=== PATIENT | female | born 1995 | race Caucasian/White ===

== ENCOUNTER 2019-03-28 10:28 | Emergency (ER) | payer OTHER, SELFPAY ==
[~2019-03-28] VITALS: Ht 167.6 cm; Wt 55.4 kg
[~2019-03-28 10:28] MED LIST: IBUP600T OR; PRENTAB8 PO; VALT500T OR; VICO5TAB OR; ZOVI200C OR
[2019-03-28] MEDS ORDERED: KETOROLAC 30 MG/ML VIAL (J1885) IV ONE (11:00)
[2019-03-28] MEDS ORDERED: ONDANSETRON 4MG/2ML VIAL (J2405) IV ONE (11:00)
[2019-03-28] MEDS ORDERED: NS 1,000 ML IV ONE (11:00)
[2019-03-28 11:23] LABS: BASO % 0.2 % (0.0-1.0); EOS # 0.1 10^3/uL (0.0-0.50); EOS % 0.5 % (0.0-3.0); HEMATOCRIT 37.2 % (36.0-47.0); HEMOGLOBIN 12.9 g/dl (12.0-15.5); LYMPH # 1.5 10^3/uL (1.5-6.5); LYMPH % 15.3 % (24.0-44.0); MEAN CORPUSCULAR HEMOGLOBIN 32.2 pg (27.0-33.0); MEAN CORPUSCULAR HGB CONC 34.7 g/dl (32.0-36.5); MEAN CORPUSCULAR VOLUME 92.8 fl (80.0-96.0); MONO # 0.7 10^3/uL (0.0-0.8); MONO % 7.2 % (0.0-5.0); NEUTROPHILS # 7.6 10^3/uL (1.8-7.7); NEUTROPHILS % 76.4 % (36.0-66.0); PLATELET COUNT, AUTOMATED 270 10^3/uL (150-450); RED BLOOD COUNT 4.01 10^6/uL (4.00-5.40)
[2019-03-28 11:45] LABS: ALBUMIN 4.2 GM/DL (3.2-5.2); ALT/SGPT 20 U/L (12-78); BILIRUBIN,DIRECT 0.3 MG/DL (0.0-0.2); BLOOD UREA NITROGEN 18 MG/DL (7-18); CALCIUM LEVEL 8.7 MG/DL (8.5-10.1); CARBON DIOXIDE LEVEL 23 MEQ/L (21-32); CHLORIDE LEVEL 110 MEQ/L (98-107); CREATININE FOR GFR 0.84 MG/DL (0.55-1.30); GLOMERULAR FILTRATION RATE > 60.0 (>60); GLUCOSE, FASTING 96 MG/DL (70-100); LIPASE 66 U/L (73-393); POTASSIUM SERUM 3.7 MEQ/L (3.5-5.1); SODIUM LEVEL 145 MEQ/L (136-145)
--- NOTE | 2019-03-28 12:31 | REP ---
NON-OB PELVIC ULTRASOUND: HISTORY: Pelvic pain. The uterus measures 5.6 cm in transverse x 3.7 cm in AP x 7.7 cm in cephalocaudal dimensions. The endometrium measures 2.3 mm. An IUD is present in the endometrial cavity. The right ovary measures 4.2 x 3.5 x 4.8 cm. An echogenic mass is present in the right ovary. This measures 3.4 x 3 x 4.4 cm. The left ovary measures 3.6 x 2.2 x 3.1 cm. A hemorrhagic follicle is present in the left ovary. The follicle measures 1.9 x 1.8 x 1.8 cm. There is no torsion or free fluid. IMPRESSION: 1. An IUD is present in the endometrial cavity. 2. There is a 4.4 cm echogenic mass in the right ovary. This may represent a dermoid. 3. 1.9 cm left ovarian hemorrhagic follicle. Electronically Signed by Rohit Georges MD 03/28/2019 12:54 P
[2019-03-28] MEDS ORDERED: ZOFR4TAB16 PO (13:14)
[2019-03-28 13:20] VITALS: BP 109/58
--- NOTE | 2019-03-30 12:37 | ED PDOC ---
Post-Departure Follow-Up pelvic us faxed to dr garcia for fu Rubia Ruiz MD Mar 30, 2019 12:37
== END 2019-03-28 13:25 | disposition home or self-care (01) ==
LOC: M ED 10:28
DX: N83.02 Follicular cyst of left ovary (principal); D27.0 Benign neoplasm of right ovary; Z97.5 Presence of (intrauterine) contraceptive device
CPT/HCPCS: 76376; 76830; 76856; 80048; 80076; 81001; 83690; 84702; 85025; 93976; 96361; 96374; 96375; 99284; J1885; J2405

== ENCOUNTER 2019-05-14 06:05 | Day surgery (SDC) | payer OTHER ==
[~2019-05-14] VITALS: Ht 167.6 cm; Wt 57.3 kg
[~2019-05-14 06:05] MED LIST changes: +LEXA1TAB PO; +LIDOCAINE 1% MDV 20ML VIAL SQ PRN; +VITA200010 PO; +ZOFR4TAB16 PO
[2019-05-14 06:31] LABS: HEMATOCRIT 37.2 % (36.0-47.0); HEMOGLOBIN 12.4 g/dl (12.0-15.5); MEAN CORPUSCULAR HEMOGLOBIN 30.9 pg (27.0-33.0); MEAN CORPUSCULAR HGB CONC 33.3 g/dl (32.0-36.5); MEAN CORPUSCULAR VOLUME 92.8 fl (80.0-96.0); PLATELET COUNT, AUTOMATED 245 10^3/uL (150-450); RED BLOOD COUNT 4.01 10^6/uL (4.00-5.40); WHITE BLOOD COUNT 8.4 10^3/uL (4.0-10.0)
[2019-05-14] MEDS ORDERED: PROPOFOL 200 MG/20 ML VIAL As Ordered ONE (06:47)
[2019-05-14] MEDS ORDERED: ROCURONIUM BROMIDE 50 MG/5 ML VIAL As Ordered ONE (06:47)
[2019-05-14] MEDS ORDERED: dexameTHASONE 4 MG/ML 1ML VIAL (J1100) As Ordered ONE (06:48)
[2019-05-14] MEDS ORDERED: ONDANSETRON 4MG/2ML VIAL (J2405) As Ordered ONE (06:48)
[2019-05-14] MEDS ORDERED: ACETAMINOPHEN 1000MG 100ML IV BTL (OFIRMEV) (J0131 PER 10MG) As Ordered ONE (06:48)
[2019-05-14] MEDS ORDERED: MIDAZOLAM INJ 2 MG/2 ML VIAL (J2250) As Ordered ONE (06:48)
[2019-05-14] MEDS ORDERED: fentaNYL 250 MCG/5 ML INJECTION (J3010) As Ordered ONE (06:49)
[2019-05-14] MEDS ORDERED: LIDOCAINE 2% INJ 100 MG/5 ML SDV (FOR ANES.) As Ordered ONE (06:52)
[2019-05-14] MEDS ORDERED: LR 1,000 ML IV ONE (07:00)
[2019-05-14] MEDS ORDERED: BUPIVACAINE HCL 0.25% 30 ML VIAL As Ordered ONE (07:09)
[2019-05-14 07:15] LABS: URINE PREG TEST NEGATIVE (NEGATIVE)
[2019-05-14] MEDS ORDERED: OXYC1TAB23 PO (07:24)
[2019-05-14] MEDS ORDERED: IBUP-1022 PO (07:25)
[2019-05-14] MEDS ORDERED: GLYCOPYRROLATE INJ 0.2 MG/ML 2 ML VIAL As Ordered ONE ×2 (08:02→08:21)
[2019-05-14] MEDS ORDERED: NEOSTIGMINE 10 MG/10 ML VIAL (J2710) As Ordered ONE (08:02)
[2019-05-14] MEDS ORDERED: METOCLOPRAMIDE INJ 10MG/2ML VIAL (J2765) As Ordered ONE (08:03)
[2019-05-14] MEDS ORDERED: KETOROLAC 60 MG/2 ML VIAL (J1885) As Ordered ONE (08:03)
[2019-05-14] MEDS ORDERED: ePHEDrine SULFATE 25 MG/5 ML(5MG/ML) SYRINGE As Ordered ONE (08:21)
[2019-05-14] MEDS ORDERED: PERCOCET 5MG/325MG TAB As Ordered ONE (09:11)
[2019-05-14] MEDS: PERCOCET 5MG/325MG TAB PO PRN ×2 (09:12→09:42)
[2019-05-14] MEDS ORDERED: LR 1,000 ML IV SCH (09:45)
[2019-05-14] MEDS ORDERED: PERCOCET 5MG/325MG TAB PO PRN (09:45)
[2019-05-14] MEDS ORDERED: fentaNYL 100 MCG/2 ML INJECTION (J3010) IV PRN (09:45)
[2019-05-14] MEDS ORDERED: METOCLOPRAMIDE INJ 10MG/2ML VIAL (J2765) IV PRN (09:45)
[2019-05-14] MEDS ORDERED: MEPERIDINE INJ 25 MG/ML VIAL (J2175) IV PRN (09:45)
[2019-05-14] MEDS ORDERED: ONDANSETRON 4MG/2ML VIAL (J2405) IV PRN (09:45)
[2019-05-14 10:45] VITALS: BP 104/51
--- NOTE | 2019-05-15 14:50 | RO ---
DATE OF PROCEDURE: 05/14/2019 PREPROCEDURE DIAGNOSIS: Right ovarian dermoid cyst. POSTPROCEDURE DIAGNOSIS: Right ovarian dermoid cyst. PROCEDURE: Laparoscopic right ovarian cystectomy. SURGEON: Rohit Arteaga MD SCREEN MAKER: Hermann Rutherford DO ANESTHESIA: General endotracheal. ESTIMATED BLOOD LOSS: 50 mL. URINE OUTPUT: 20 mL. FINDINGS: 4-5 cm dermoid cyst involving the right ovary. There is a normal appearing right fallopian tube, normal appearing left ovary and fallopian tube, normal uterus. Omental adhesions to the anterior abdominal wall in the midline. There was mild endometriosis involving the pelvis on the right lateral to the fallopian tube and minimal endometriosis in the posterior cul-de-sac. DESCRIPTION OF PROCEDURE: The patient was taken to the operating room where general endotracheal anesthesia was induced. She was prepped and draped in a sterile fashion in the dorsal lithotomy position. The bladder was emptied with a catheter. A [employer] tenaculum was used as a manipulator. A periumbilical incision was made with a scalpel, and the Veress needle was placed through this incision while tenting up on the skin of the abdomen. Intraabdominal location of the Veress needle was assessed with the use of a saline-filled syringe. Pneumoperitoneum was created. The Veress needle was removed. 11 mm trocar using Visiport was inserted through the incision. Three 5 mm suprapubic ports were placed under direct visualization. The right ovary was elevated out of the ovarian fossa and stabilized. Elliptical incision was created over the area of the dermoid cyst with monopolar Endo Murali. The cyst was dissected off the ovary with a combination of blunt and sharp dissection. The cyst was removed, removed in its entirety. The base of the ovarian stroma was coagulated with the Harmonic scalpel. The ovarian cyst, which was a classic dermoid containing fat and hair was placed in an Endo Catch bag and removed through the umbilical port. The pelvis was copiously irrigated. Pneumoperitoneum was released. All instruments were removed. The skin was closed with #4-0 Monocryl subcuticular sutures. Sponge, instrument, and needle counts were correct.
== END 2019-05-14 10:54 | disposition home or self-care (01) ==
LOC: M SDC 06:05
PROVIDERS: ATTEND Specialist
DX: D27.0 Benign neoplasm of right ovary (principal); N83.11 Corpus luteum cyst of right ovary; F41.9 Anxiety disorder, unspecified; G43.909 Migraine, unspecified, not intractable, without status migrainosus; F32.9 Major depressive disorder, single episode, unspecified; Z79.899 Other long term (current) drug therapy
CPT/HCPCS: 36415; 58662; 84703; 85027; 88305; J0131; J1100; J1885; J2250; J2405; J2710; J2765; J3010

== ENCOUNTER 2020-04-26 14:40 | Emergency (ER) | payer OTHER ==
[~2020-04-26] VITALS: Ht 167.6 cm; Wt 61.8 kg
[~2020-04-26 14:40] MED LIST changes: +IBUP-1022 PO; -LIDOCAINE 1% MDV 20ML VIAL SQ PRN; +OXYC1TAB23 PO
[2020-04-26] MEDS ORDERED: CEPH500C (15:25)
[2020-04-26 15:26] LABS: BASO % 0.5 % (0.0-1.0); EOS # 0.2 10^3/uL (0.0-0.5); HEMATOCRIT 35.9 % (36.0-47.0); HEMOGLOBIN 12.1 g/dl (12.0-15.5); LYMPH # 2.2 10^3/uL (1.5-5.0); MEAN CORPUSCULAR HEMOGLOBIN 30.9 pg (27.0-33.0); MEAN CORPUSCULAR HGB CONC 33.7 g/dl (32.0-36.5); MEAN CORPUSCULAR VOLUME 91.8 fl (80.0-96.0); MONO # 0.5 10^3/uL (0.0-0.8); MONO % 8.4 % (0.0-5.0); NEUTROPHILS # 2.9 10^3/uL (1.5-8.5); NEUTROPHILS % 49.9 % (36.0-66.0); PLATELET COUNT, AUTOMATED 289 10^3/uL (150-450); RED BLOOD COUNT 3.91 10^6/uL (4.00-5.40); WHITE BLOOD COUNT 5.7 10^3/uL (4.0-10.0)
[2020-04-26 15:54] LABS: ALT/SGPT 15 U/L (12-78); BILIRUBIN,DIRECT 0.1 MG/DL (0.0-0.2); BILIRUBIN,TOTAL 0.4 MG/DL (0.2-1.0); BLOOD UREA NITROGEN 12 MG/DL (7-18); CALCIUM LEVEL 8.7 MG/DL (8.5-10.1); CARBON DIOXIDE LEVEL 25 MEQ/L (21-32); CHLORIDE LEVEL 112 MEQ/L (98-107); CREATININE FOR GFR 0.74 MG/DL (0.55-1.30); GLOMERULAR FILTRATION RATE > 60.0 (>60); GLUCOSE, FASTING 94 MG/DL (70-100); LIPASE 75 U/L (73-393); SODIUM LEVEL 141 MEQ/L (136-145); TOTAL PROTEIN 7.8 GM/DL (6.4-8.2)
[2020-04-26] MEDS ORDERED: ZOFR4TAB16 PO (17:19)
[2020-04-26 17:26] VITALS: BP 116/55
[2020-04-26] MEDS ORDERED: ACETAMINOPHEN 500 MG TAB PO ONE (17:30)
--- NOTE | 2020-04-27 05:25 | REP ---
RIGHT UPPER QUADRANT ULTRASOUND: Real-time sonographic evaluation of right upper quadrant performed. The gallbladder demonstrates no evidence of intraluminal sludge or calculi, wall thickening, or pericholecystic fluid. There is no intrahepatic or extrahepatic biliary dilatation, common bile duct measuring 6 mm in diameter. Liver and pancreas demonstrate no gross mass. Right kidney demonstrate no hydronephrosis with normal size, 11.2 cm in length. There is no ascites. IMPRESSION: Negative right upper quadrant ultrasound. Electronically Signed by Jam Fraser MD 04/30/2020 10:03 P
== END 2020-04-26 17:31 | disposition home or self-care (01) ==
LOC: M ED 14:40
DX: R10.11 Right upper quadrant pain (principal); R11.2 Nausea with vomiting, unspecified; R19.7 Diarrhea, unspecified; A60.00 Herpesviral infection of urogenital system, unspecified; F17.200 Nicotine dependence, unspecified, uncomplicated; N83.209 Unspecified ovarian cyst, unspecified side; Z79.899 Other long term (current) drug therapy

== ENCOUNTER → 2020-10-06 | Outpatient (CLI) | payer OTHER ==
[~2020-10-06] MED LIST changes: +CEPH500C
== END ==
LOC: M LABSMTC 13:41
PROVIDERS: ATTEND Family Medicine
DX: Z20.828 Contact with and (suspected) exposure to other viral communicable diseases (principal)

== ENCOUNTER 2020-12-25 19:58 | Emergency (ER) | payer OTHER ==
[~2020-12-25] VITALS: Ht 167.6 cm; Wt 67.1 kg
[2020-12-25] MEDS ORDERED: NS 1,000 ML IV ONE (20:35)
[2020-12-25] MEDS ORDERED: ONDANSETRON 4MG/2ML VIAL IV ONE (20:40)
[2020-12-25] MEDS ORDERED: KETOROLAC 30 MG/ML 1ML VIAL IV ONE (20:40)
[2020-12-25 20:59] LABS: BASO % 0.4 % (0.0-1.0); EOS # 0.2 10^3/uL (0.0-0.5); HEMATOCRIT 36.7 % (36.0-47.0); HEMOGLOBIN 11.8 g/dl (12.0-15.5); LYMPH # 2.5 10^3/uL (1.5-5.0); LYMPH % 32.1 % (24.0-44.0); MEAN CORPUSCULAR HEMOGLOBIN 29.8 pg (27.0-33.0); MEAN CORPUSCULAR HGB CONC 32.2 g/dl (32.0-36.5); MEAN CORPUSCULAR VOLUME 92.7 fl (80.0-96.0); MONO % 13.2 % (2.0-8.0); PLATELET COUNT, AUTOMATED 348 10^3/uL (150-450); RED BLOOD COUNT 3.96 10^6/uL (4.00-5.40); WHITE BLOOD COUNT 7.9 10^3/uL (4.0-10.0)
[2020-12-25 21:08] LABS: ALT/SGPT 24 U/L (12-78); BILIRUBIN,DIRECT < 0.1 MG/DL (0.0-0.2); BILIRUBIN,TOTAL 0.3 MG/DL (0.2-1.0); LIPASE 86 U/L (73-393); TOTAL PROTEIN 7.2 GM/DL (6.4-8.2)
[2020-12-26 00:11] LABS: CHLAMYDIA DNA AMPLIFICATION NEGATIVE (NEGATIVE); GC DNA AMPLIFICATION NEGATIVE (NEGATIVE)
[2020-12-26 00:12] VITALS: BP 110/58
--- NOTE | 2020-12-26 00:24 | REPVR ---
PROCEDURE INFORMATION: Exam: US Pelvis Complete, Transabdominal and US Pelvis, Transvaginal and US Duplex Artery and Vein, Ovaries, Complete Exam date and time: 12/25/2020 11:40 PM Age: 25 years old Clinical indication: Pelvic pain; Prior surgery; Surgery date: 6+ months; Surgery type: Dermoid removed from right ovary; Additional info: Abdominal pain TECHNIQUE: Imaging protocol: Real-time transabdominal and transvaginal pelvic ultrasound (complete) with image documentation. Transvaginal imaging was used for better evaluation of the endometrium, adnexa, and/or cervix. Real-time duplex ultrasound scan of the arterial and venous flow of the ovaries with B-mode, color Doppler flow and spectral waveform analysis. COMPARISON: US PELVIC NON-OB COMPLETE 03/28/2019 11:35 AM FINDINGS: Uterus/cervix: The anteverted uterus is normal in appearance. No myometrial mass is noted. The endometrial stripe is normal in appearance. There is an intrauterine device in the endometrial canal. The cervix is unremarkable. Right adnexa: The right ovary is normal in appearance. No right ovarian cyst or right adnexal mass is noted. The 4.4 cm echogenic mass in the right ovary seen in the prior pelvic ultrasound on 03/28/2019 is no longer present. The arterial and venous color Doppler flow and spectral waveforms within the right ovary are within normal limits, without evidence for right ovarian torsion. Left adnexa: There is a 1.9 cm x 1.9 cm x 2 cm involuting follicular cyst in the left ovary. The arterial and venous color Doppler flow and spectral waveforms within the left ovary are within normal limits, without evidence for left ovarian torsion. Intraperitoneal space: No free fluid is seen in the pelvis from the images obtained. Urinary bladder: Unremarkable. Uterus size: 8 cm x 3.6 cm x 5.4 cm Endometrial stripe thickness: 6 mm Right ovary size: 2.1 cm x 1.5 cm x 2.1 cm Left ovary size: 3.8 cm x 3 cm x 2.5 cm IMPRESSION: 1. No acute sonographic findings in the pelvis or evidence for ovarian torsion. 2. 1.9 cm x 1.9 cm x 2 cm involuting follicular cyst in the left ovary, for which follow-up is not necessary. 3. Intrauterine device in the endometrial canal. Electronically signed by: Sd Mayes On 12/26/2020 00:25:24 AM
[2020-12-26] MEDS ORDERED: SIMETHICONE 80MG CHEW TAB PO STA (01:07)
[2020-12-26] MEDS ORDERED: ONDANSETRON 4 MG ORAL DISINTEGRATING TAB PO ONE (01:10)
[2020-12-26] MEDS ORDERED: SIME180C PO (01:10)
[2020-12-26] MEDS ORDERED: ONDA4TAB6 PO (01:10)
[2020-12-26] MEDS ORDERED: DICY10CA13 PO (01:10)
[2020-12-26] MEDS ORDERED: DICYCLOMINE 10 MG CAP PO ONE (01:10)
== END 2020-12-26 01:35 | disposition home or self-care (01) ==
LOC: M ED 19:58
DX: R10.9 Unspecified abdominal pain (principal); R11.2 Nausea with vomiting, unspecified; R19.7 Diarrhea, unspecified; Z20.822 Contact with and (suspected) exposure to COVID-19; Z87.42 Personal history of other diseases of the female genital tract
CPT/HCPCS: 76830; 76856; 80047; 80076; 81001; 83690; 84702; 85025; 87210; 87661; 93976; 96361; 96374; 96375; 99284; J1885; J2405; Q0162; U0003

== ENCOUNTER → 2022-05-13 | Outpatient (CLI) | payer OTHER ==
[~2022-05-13] MED LIST changes: +DICY10CA13 PO; +ONDA4TAB6 PO; +SIME180C25 PO
[2022-05-13 13:55] LABS: BASO % 0.3 % (0.0-1.0); EOS # 0.1 10^3/uL (0.0-0.5); EOS % 1.6 % (0.0-3.0); HEMATOCRIT 33.3 % (36.0-47.0); HEMOGLOBIN 11.3 g/dl (12.0-15.5); LYMPH # 1.8 10^3/uL (1.5-5.0); LYMPH % 20.5 % (24.0-44.0); MEAN CORPUSCULAR HEMOGLOBIN 31.7 pg (27.0-33.0); MEAN CORPUSCULAR HGB CONC 33.9 g/dl (32.0-36.5); MEAN CORPUSCULAR VOLUME 93.3 fl (80.0-96.0); MONO # 0.8 10^3/uL (0.0-0.8); MONO % 8.7 % (2.0-8.0); NEUTROPHILS # 5.9 10^3/uL (1.5-8.5); NEUTROPHILS % 68.1 % (36.0-66.0); PLATELET COUNT, AUTOMATED 306 10^3/uL (150-450); RED BLOOD COUNT 3.57 10^6/uL (4.00-5.40); WHITE BLOOD COUNT 8.7 10^3/uL (4.0-10.0)
[2022-05-13 15:20] LABS: HEPATITIS C VIRUS ABY INDEX < 0.0 INDEX (<0.8); HIV 1&2 SCREEN CENTAUR NEGATIVE (NEGATIVE)
== END ==
LOC: M PLALAB 09:08
PROVIDERS: ATTEND Obstetrics & Gynecology
DX: Z34.90 Encounter for supervision of normal pregnancy, unspecified, unspecified trimester (principal); Z3A.00 Weeks of gestation of pregnancy not specified

== ENCOUNTER → 2022-05-22 | Outpatient (CLI) | payer OTHER | LOC: M WHC 09:59 | PROVIDERS: ATTEND Obstetrics & Gynecology | DX: Z34.82 Encounter for supervision of other normal pregnancy, second trimester (principal) ==

== ENCOUNTER → 2022-07-03 | Outpatient (CLI) | payer OTHER | LOC: M WHC 09:33 | PROVIDERS: ATTEND Advanced Practice Midwife | DX: Z36.2 Encounter for other antenatal screening follow-up (principal); Z3A.25 25 weeks gestation of pregnancy ==

== ENCOUNTER → 2022-07-12 | Outpatient (CLI) | payer OTHER ==
[2022-07-12 15:41] LABS: HEMATOCRIT 29.6 % (36.0-47.0); HEMOGLOBIN 9.9 g/dl (12.0-15.5); MEAN CORPUSCULAR HEMOGLOBIN 32.4 pg (27.0-33.0); MEAN CORPUSCULAR HGB CONC 33.4 g/dl (32.0-36.5); MEAN CORPUSCULAR VOLUME 96.7 fl (80.0-96.0); PLATELET COUNT, AUTOMATED 325 10^3/uL (150-450); RED BLOOD COUNT 3.06 10^6/uL (4.00-5.40); WHITE BLOOD COUNT 12.9 10^3/uL (4.0-10.0)
[2022-07-14 12:18] LABS: GC DNA AMPLIFICATION NEGATIVE (NEGATIVE)
== END ==
LOC: M PLALAB 12:08
PROVIDERS: ATTEND Advanced Practice Midwife
DX: Z34.92 Encounter for supervision of normal pregnancy, unspecified, second trimester (principal); Z3A.00 Weeks of gestation of pregnancy not specified

== ENCOUNTER → 2022-09-10 | Outpatient (CLI) | payer OTHER | LOC: M WHC 14:19 | PROVIDERS: ATTEND Obstetrics & Gynecology | DX: O09.893 Supervision of other high risk pregnancies, third trimester (principal); Z3A.37 37 weeks gestation of pregnancy ==

== ENCOUNTER → 2022-09-19 | Outpatient (REF) | payer OTHER | LOC: M PLALAB 12:09 | PROVIDERS: ATTEND Advanced Practice Midwife | DX: O34.211 Maternal care for low transverse scar from previous cesarean delivery (principal); Z3A.00 Weeks of gestation of pregnancy not specified ==

== ENCOUNTER 2022-10-01 01:04 | Outpatient (CLI) | payer OTHER ==
[~2022-10-01] VITALS: Ht 167.6 cm; Wt 76.8 kg
[~2022-10-01 01:04] MED LIST changes: +FERR325T82 PO; +VALA500T5 PO
[2022-10-01 01:21] VITALS: BP 128/75
[2022-10-01] MEDS ORDERED: HOME MED LIST COMPLETE! XX SCH (02:55)
[2022-10-01 02:56] VITALS: BP 122/72
[2022-10-01 03:15] LABS: APPEARANCE, URINE MANUAL CLEAR (CLEAR); COLOR, URINE MANUAL YELLOW (YELLOW)
[2022-10-01 03:16] LABS: BILIRUBIN, URINE MANUAL NEGATIVE (NEGATIVE); BLOOD URINE MANUAL NEGATIVE (NEGATIVE); GLUCOSE, URINE (UA) MANUAL NEGATIVE (NEGATIVE); KETONE, URINE MANUAL NEGATIVE (NEGATIVE); LEUKOCYTE ESTERASE, URINE MAN NEGATIVE (NEGATIVE); NITRITE, URINE MANUAL NEGATIVE (NEGATIVE); PROTEIN, URINE MANUAL NEGATIVE (NEGATIVE); SPECIFIC GRAVITY,URINE MANUAL 1.015 (1.002-1.035); UROBILINOGEN, URINE MANUAL 4 MG mg/dl (NORMAL)
[2022-10-01 04:22] VITALS: BP 120/71
== END 2022-10-01 04:20 | disposition home or self-care (01) ==
LOC: M LDO 01:04
PROVIDERS: ATTEND Advanced Practice Midwife
DX: O26.893 Other specified pregnancy related conditions, third trimester (principal); R25.2 Cramp and spasm; N89.8 Other specified noninflammatory disorders of vagina; O34.219 Maternal care for unspecified type scar from previous cesarean delivery; Z87.42 Personal history of other diseases of the female genital tract; Z3A.38 38 weeks gestation of pregnancy

== ENCOUNTER → 2022-10-07 | Outpatient (CLI) | payer OTHER | LOC: M LABSMTC 09:26 | PROVIDERS: ATTEND Anesthesiology | DX: Z01.812 Encounter for preprocedural laboratory examination (principal); Z11.52 Encounter for screening for COVID-19 ==

== ENCOUNTER 2022-10-09 05:26 | Inpatient (IN) | payer OTHER ==
[~2022-10-09] VITALS: Ht 167.6 cm; Wt 77.2 kg
[2022-10-09] VITALS (9 sets, daily range): BP systolic 102–128; BP diastolic 64–73
[2022-10-09] MEDS ORDERED: LR 1,000 ML IV ONE (05:45)
[2022-10-09] MEDS ORDERED: BICITRA 30ML SOLN UDC PO ONE (05:45)
[2022-10-09] MEDS ORDERED: ceFAZolin SOD 2 GM in IV 1 EA IV ONE (05:45)
[2022-10-09 06:23] LABS: HEMATOCRIT 32.5 % (36.0-47.0); HEMOGLOBIN 10.5 g/dl (12.0-15.5); MEAN CORPUSCULAR HEMOGLOBIN 28.8 pg (27.0-33.0); MEAN CORPUSCULAR HGB CONC 32.3 g/dl (32.0-36.5); MEAN CORPUSCULAR VOLUME 89.3 fl (80.0-96.0); PLATELET COUNT, AUTOMATED 392 10^3/uL (150-450); RED BLOOD COUNT 3.64 10^6/uL (4.00-5.40); WHITE BLOOD COUNT 9.6 10^3/uL (4.0-10.0)
[2022-10-09] MEDS ORDERED: LR 1,000 ML IV SCH ×2 (06:45→08:55)
[2022-10-09] MEDS ORDERED: OXYTOCIN 30UNITS IN 0.9% NaCl 500ML IV BAG As Ordered ONE ×2 (07:13→09:14)
[2022-10-09] MEDS ORDERED: MORPHINE PRES-FREE INJ 10 MG/10 ML VIAL As Ordered ONE (07:13)
[2022-10-09] MEDS ORDERED: ONDANSETRON 4MG 2ML VIAL As Ordered ONE (07:40)
[2022-10-09] MEDS ORDERED: PHENYLephrine 500MCG 5ML (100MCG/ML) SYRINGE As Ordered ONE (08:16)
[2022-10-09] MEDS ORDERED: ePHEDrine SULFATE 25 MG/5 ML(5MG/ML) SYRINGE As Ordered ONE (08:16)
[2022-10-09] MEDS ORDERED: KETOROLAC 60MG 2ML VIAL As Ordered ONE (08:30)
[2022-10-09] MEDS ORDERED: ACETAMINOPHEN 1000MG 100ML IV BAG As Ordered ONE (08:30)
[2022-10-09] MEDS ORDERED: **NOTE PATIENT COMMENT** MISC XX SCH (08:55)
[2022-10-09] MEDS ORDERED: ONDANSETRON 4MG 2ML VIAL IV PRN ×2 (08:55→09:10)
[2022-10-09] MEDS ORDERED: HYDROMORPHONE HCL 0.5 MG/ 0.5 ML SYRINGE (J1170 PER 1) IV PRN (08:55)
[2022-10-09] MEDS ORDERED: NALOXONE INJ 0.4MG/1ML VIAL IV PRN ×2 (08:55)
[2022-10-09] MEDS ORDERED: METOCLOPRAMIDE INJ 10MG/2ML VIAL IV PRN (08:55)
[2022-10-09] MEDS ORDERED: diphenhydrAMINE 50MG/ML VIAL IV PRN (08:55)
[2022-10-09] MEDS ORDERED: oxyCODONE 5MG TAB PO PRN (08:55)
[2022-10-09] MEDS ORDERED: MEPERIDINE INJ 25 MG/ML VIAL IV PRN (08:55)
[2022-10-09] MEDS ORDERED: fentaNYL 100 MCG/2 ML INJECTION IV PRN (08:55)
[2022-10-09] MEDS ORDERED: PERCOCET 5MG/325MG TAB PO PRN ×2 (09:10)
[2022-10-09] MEDS ORDERED: SIMETHICONE 80MG CHEW TAB PO PRN (09:10)
[2022-10-09] MEDS ORDERED: OXYTOCIN DRIP 30 UNITS in IV 1 EA IV SCH (09:10)
[2022-10-09] MEDS ORDERED: METHYLERGONOVINE MALEATE 0.2 MG/ML VIAL (J2210) IM PRN (09:10)
[2022-10-09] MEDS ORDERED: RHOGAM 300MCG (1500IU) INJ IM SCH (09:10)
[2022-10-09] MEDS ORDERED: ACETAMINOPHEN 500 MG TAB PO PRN (09:10)
[2022-10-09] MEDS ORDERED: MORPHINE 4 MG/ML 1ML VIAL IV PRN (09:10)
[2022-10-09] MEDS ORDERED: ANUSOL HC CREAM 30GM TOP PRN (09:10)
[2022-10-09] MEDS ORDERED: PERCOCET PO (09:16)
[2022-10-09] MEDS ORDERED: IBUP80TA PO (09:16)
[2022-10-09] MEDS ORDERED: COLA100C5 PO (09:16)
[2022-10-09] MEDS ORDERED: OXYTOCIN DRIP 30 UNITS in IV 1 EA IV ONE (09:20)
[2022-10-09] MEDS: SLF 3 ML SYR IV SCH ×2 (11:39→17:33)
[2022-10-09] MEDS: PRENATAL VITAMINS CHEWABLE TABLET PO SCH (11:40)
[2022-10-09] MEDS: LR 1,000 ML IV SCH ×2 (13:40→17:10)
[2022-10-09] MEDS: KETOROLAC 30 MG/ML 1ML VIAL IV SCH ×2 (15:15→21:20)
[2022-10-09] MEDS: DOCUSATE SODIUM 100MG CAPSULE PO SCH (21:20)
[2022-10-10] MEDS: SLF 3 ML SYR IV SCH (00:55)
[2022-10-10 02:00] VITALS: BP 114/57
[2022-10-10] MEDS: KETOROLAC 30 MG/ML 1ML VIAL IV SCH (03:32)
[2022-10-10 06:00] VITALS: BP 105/55
[2022-10-10 06:53] LABS: HEMATOCRIT 26.4 % (36.0-47.0); HEMOGLOBIN 8.6 g/dl (12.0-15.5); MEAN CORPUSCULAR HGB CONC 32.6 g/dl (32.0-36.5); MEAN CORPUSCULAR VOLUME 88.9 fl (80.0-96.0); PLATELET COUNT, AUTOMATED 337 10^3/uL (150-450); RED BLOOD COUNT 2.97 10^6/uL (4.00-5.40); WHITE BLOOD COUNT 11.2 10^3/uL (4.0-10.0)
[2022-10-10] MEDS: DOCUSATE SODIUM 100MG CAPSULE PO SCH ×2 (07:41→22:13)
[2022-10-10] MEDS: PRENATAL VITAMINS CHEWABLE TABLET PO SCH (07:41)
[2022-10-10 10:00] VITALS: BP 109/52
[2022-10-10] MEDS: IBUPROFEN 800 MG TAB PO SCH ×2 (11:18→18:28)
[2022-10-10 14:00] VITALS: BP 108/58
[2022-10-10 18:00] VITALS: BP 104/55
[2022-10-10 22:00] VITALS: BP 112/58
[2022-10-11 02:00] VITALS: BP 112/68
[2022-10-11] MEDS: IBUPROFEN 800 MG TAB PO SCH ×2 (02:39→10:54)
[2022-10-11 06:00] VITALS: BP 120/66
[2022-10-11] MEDS: DOCUSATE SODIUM 100MG CAPSULE PO SCH (07:55)
[2022-10-11] MEDS: PRENATAL VITAMINS CHEWABLE TABLET PO SCH (07:55)
[2022-10-11] MEDS ORDERED: INFLUENZA QUADRIVALENT PF VACCINE 0.5ML SYRINGE IM.IMMUN ONE (09:00)
[2022-10-11] MEDS ORDERED: MEASLES,MUMPS,RUBELLA VACCINE INJ (MMR-II) SC.IMMUN ONE (09:00)
[2022-10-11 10:00] VITALS: BP 130/65
== END 2022-10-11 13:05 | disposition home or self-care (01) | DRG 540 ==
LOC: M LDI 05:26 → M OBS 10:38
PROVIDERS: ADMIT Obstetrics & Gynecology; ATTEND Obstetrics & Gynecology
PROC: 10D00Z1 Extraction of Products of Conception, Low, Open Approach (ICD-10-PCS; principal; 2022-10-09 07:30)
DX: O34.211 Maternal care for low transverse scar from previous cesarean delivery (principal); Z3A.39 39 weeks gestation of pregnancy; Z37.0 Single live birth

== ENCOUNTER 2023-10-06 08:44 | Emergency (ER) | payer OTHER ==
[~2023-10-06] VITALS: Ht 170.2 cm; Wt 72.9 kg
[~2023-10-06 08:44] MED LIST changes: +COLA100C5 PO; +DICY-61 PO; -DICY10CA13 PO; +IBUP80TA PO; +PERCOCET PO
[2023-10-06] MEDS ORDERED: ACETAMINOPHEN *IV* 1,000 MG in IV 1 EA IV ONE (10:00)
[2023-10-06] MEDS ORDERED: diphenhydrAMINE 50MG/ML VIAL IV ONE (10:00)
[2023-10-06] MEDS ORDERED: NS 1,000 ML IV ONE (10:00)
[2023-10-06] MEDS ORDERED: METOCLOPRAMIDE INJ 10MG/2ML VIAL IV ONE (10:00)
[2023-10-06 10:10] LABS: RSV AMPLIFICATION NEGATIVE (NEGATIVE)
[2023-10-06 12:04] VITALS: BP 134/77; TEMP 98.4; O2SAT 99
== END 2023-10-06 12:33 | disposition home or self-care (01) ==
LOC: M ED 08:44
DX: O26.90 Pregnancy related conditions, unspecified, unspecified trimester (principal); G43.911 Migraine, unspecified, intractable, with status migrainosus; F17.200 Nicotine dependence, unspecified, uncomplicated; F12.10 Cannabis abuse, uncomplicated; Z3A.00 Weeks of gestation of pregnancy not specified
CPT/HCPCS: 84702; 87631; 96365; 96366; 96375; 99284; J0131; J1100; J1200; J2765

== ENCOUNTER → 2023-12-05 | Outpatient (CLI) | payer OTHER ==
[2023-12-05 17:22] LABS: HEMOGLOBIN 12.4 g/dl (12.0-15.5); MEAN CORPUSCULAR HEMOGLOBIN 30.8 pg (27.0-33.0); MEAN CORPUSCULAR HGB CONC 34.4 g/dl (32.0-36.5); MEAN CORPUSCULAR VOLUME 89.3 fl (80.0-96.0); PLATELET COUNT, AUTOMATED 332 10^3/uL (150-450); RED BLOOD COUNT 4.03 10^6/uL (4.00-5.40)
[2023-12-05 18:08] LABS: HIV 1&2 SCREEN NEGATIVE (NEGATIVE)
[2023-12-05 18:17] LABS: HEPATITIS C VIRUS ABY INDEX 0.06 INDEX (<0.8)
[2023-12-05 21:22] LABS: GC DNA AMPLIFICATION NEGATIVE (NEGATIVE)
== END ==
LOC: M PLALAB 14:58
PROVIDERS: ATTEND Advanced Practice Midwife
DX: Z34.91 Encounter for supervision of normal pregnancy, unspecified, first trimester (principal)

== ENCOUNTER → 2024-01-05 | Outpatient (CLI) | payer OTHER | LOC: M PLALAB 10:28 | PROVIDERS: ATTEND Obstetrics & Gynecology | DX: Z34.92 Encounter for supervision of normal pregnancy, unspecified, second trimester (principal) ==

== ENCOUNTER → 2024-01-23 | Outpatient (CLI) | payer OTHER | LOC: M RAD 09:45 | PROVIDERS: ATTEND Obstetrics & Gynecology | DX: Z34.92 Encounter for supervision of normal pregnancy, unspecified, second trimester (principal); Z3A.20 20 weeks gestation of pregnancy ==

== ENCOUNTER 2024-02-26 22:21 | Outpatient (CLI) | payer OTHER ==
[~2024-02-26] VITALS: Ht 167.6 cm; Wt 77.7 kg
[2024-02-26 22:48] VITALS: BP 113/74
[2024-02-26 23:00] VITALS: O2SAT 97
[2024-02-26 23:49] VITALS: BP 119/58; O2SAT 99
== END 2024-02-26 23:57 | disposition home or self-care (01) ==
LOC: M LDO 22:21
PROVIDERS: ATTEND Specialist
DX: O36.8130 Decreased fetal movements, third trimester, not applicable or unspecified (principal); Z3A.25 25 weeks gestation of pregnancy
CPT/HCPCS: 59025; G0463

== ENCOUNTER → 2024-03-05 | Outpatient (CLI) | payer OTHER | LOC: M RAD 13:41 | PROVIDERS: ATTEND Advanced Practice Midwife | DX: Z34.92 Encounter for supervision of normal pregnancy, unspecified, second trimester (principal); Z3A.26 26 weeks gestation of pregnancy ==

== ENCOUNTER → 2024-04-13 | Outpatient (CLI) | payer OTHER ==
[~2024-04-13] MED LIST changes: +ONDA-282 PO; -ONDA4TAB6 PO
[2024-04-13 12:41] LABS: HEMATOCRIT 32.6 % (36.0-47.0); MEAN CORPUSCULAR HEMOGLOBIN 30.7 pg (27.0-33.0); MEAN CORPUSCULAR HGB CONC 33.7 g/dl (32.0-36.5); MEAN CORPUSCULAR VOLUME 91.1 fl (80.0-96.0); PLATELET COUNT, AUTOMATED 299 10^3/uL (150-450); RED BLOOD COUNT 3.58 10^6/uL (4.00-5.40); WHITE BLOOD COUNT 10.4 10^3/uL (4.0-10.0)
[2024-04-13 14:07] LABS: GC DNA AMPLIFICATION NEGATIVE (NEGATIVE)
== END ==
LOC: M PLALAB 10:18
PROVIDERS: ATTEND Advanced Practice Midwife
DX: Z34.92 Encounter for supervision of normal pregnancy, unspecified, second trimester (principal); Z3A.00 Weeks of gestation of pregnancy not specified

== ENCOUNTER → 2024-04-13 | Outpatient (CLI) | payer OTHER | LOC: M RAD 09:27 | PROVIDERS: ATTEND Obstetrics & Gynecology | DX: Z34.92 Encounter for supervision of normal pregnancy, unspecified, second trimester (principal); Z3A.32 32 weeks gestation of pregnancy ==

== ENCOUNTER → 2024-05-13 | Outpatient (REF) | payer OTHER | LOC: M SFHCWAGY 13:05 | PROVIDERS: ATTEND Obstetrics & Gynecology | DX: Z36.85 Encounter for antenatal screening for Streptococcus B (principal); Z3A.36 36 weeks gestation of pregnancy ==

== ENCOUNTER 2024-06-03 18:02 | Emergency (ER) | payer OTHER ==
[~2024-06-03] VITALS: Ht 167.6 cm; Wt 81.4 kg
[2024-06-03 20:45] VITALS: BP 127/83; TEMP 97.6; O2SAT 100
== END 2024-06-03 21:16 | disposition home or self-care (01) ==
LOC: M ED 18:02
DX: G44.84 Primary exertional headache (principal); S16.1XXA Strain of muscle, fascia and tendon at neck level, initial encounter; X50.0XXA Overexertion from strenuous movement or load, initial encounter; Z79.1 Long term (current) use of non-steroidal anti-inflammatories (NSAID); Z79.899 Other long term (current) drug therapy; Y92.009 Unspecified place in unspecified non-institutional (private) residence as the place of occurrence of the external cause; Y93.89 Activity, other specified; Y99.9 Unspecified external cause status